=== PATIENT | male | born 1980 | race Caucasian/White ===

== ENCOUNTER 2023-05-29 02:46 | Inpatient (IN) | payer MEDICAID ==
[~2023-05-29] VITALS: Ht 190.5 cm; Wt 81.4 kg
[2023-05-29] MEDS ORDERED: HALOPERIDOL 5 MG TABLET PO PRN (04:15)
[2023-05-29] MEDS ORDERED: LORazepam 2 MG TABLET PO PRN (04:15)
[2023-05-29 04:39] VITALS: BP 116/76; PULSE 64; RESP 18; TEMP 98.9; O2SAT 97
[2023-05-29] MEDS ORDERED: INFLUENZA VIRUS VACCINE QVS 2023-24 (6MO+)/PF 60 MCG/0.5 ML SYRINGE IM. ONE (06:45)
[2023-05-29] MEDS ORDERED: ACETAMINOPHEN 325 MG TABLET PO PRN (07:00)
[2023-05-29] MEDS ORDERED: CloNIDine HCL 0.1 MG TABLET PO PRN (07:00)
[2023-05-29] MEDS ORDERED: MAG HYDROX/ALUMINUM HYD/SIMETH ES 30 ML SUSPENSION UDCUP PO PRN (07:00)
[2023-05-29] MEDS ORDERED: ONDANSETRON HCL 4 MG TABLET PO PRN (07:00)
[2023-05-29] MEDS ORDERED: MAGNESIUM HYDROXIDE SUSPENSION 30 ML UDCUP PO PRN (07:00)
[2023-05-29] MEDS ORDERED: ALBUTEROL SULFATE HFA 90 MCG/PUFF 8 GM INHALER IH PRN (07:00)
[2023-05-29] MEDS ORDERED: LOPERAMIDE HCL 2 MG CAPSULE PO PRN (07:00)
[2023-05-29] MEDS ORDERED: IBUPROFEN 400 MG TABLET PO PRN (07:00)
[2023-05-29] MEDS ORDERED: DOCUSATE SODIUM 100 MG CAPSULE PO PRN (07:00)
[2023-05-29] MEDS ORDERED: GuaiFENesin/D-METHORPHAN [SUGAR-FREE] 200-20MG/10 ML SYRUP UDCUP PO PRN (07:00)
[2023-05-29] MEDS ORDERED: NICOTINE 14 MG/24 HOUR PATCH TD PRN (07:00)
[2023-05-29] MEDS ORDERED: PETROLATUM,WHITE 28 GM JELLY TP PRN (07:00)
[2023-05-29 08:24] VITALS: BP 116/66; PULSE 60; RESP 18; TEMP 97.7; O2SAT 98
[2023-05-29] MEDS: SERTRALINE HCL 50 MG TABLET PO SCH (12:00)
[2023-05-29] MEDS: QUEtiapine FUMARATE 100 MG TABLET PO SCH ×2 (12:28→21:52)
[2023-05-29 23:26] VITALS: BP 126/74; PULSE 73; RESP 17; TEMP 97.8
[2023-05-30 08:15] VITALS: BP 104/59; PULSE 60; RESP 18; TEMP 98; O2SAT 97
[2023-05-30 08:23] LABS: BASOPHILS % (AUTO) 0.8 % (0.0-2.0); EOSINOPHILS % (AUTO) 5.1 % (1.0-6.0); HEMATOCRIT 43.8 % (41-53); HEMOGLOBIN 14.5 g/dL (13.5-17.5); LYMPHOCYTES # (AUTO) 2.3 K/uL (1.0-4.8); LYMPHOCYTES % (AUTO) 38.8 % (22.0-44.0); MEAN CORPUSCULAR HEMOGLOBIN 29.9 pg (26.0-34.0); MEAN CORPUSCULAR HGB CONC 33.2 G/dL (31.0-37.0); MEAN CORPUSCULAR VOLUME 90 fL (80-100); MONOCYTES # (AUTO) 0.6 K/uL (0.1-1.0); MONOCYTES % (AUTO) 10.1 % (2.0-9.0); NEUTROPHILS # (AUTO) 2.7 K/uL (1.8-7.7); NEUTROPHILS % (AUTO) 45.2 % (40.0-70.0); PLATELET COUNT (AUTO) 296 K/uL (150-450); RED BLOOD CELL COUNT(AUTO) 4.86 MIL/uL (4.50-5.90); RED CELL DISTRIBUTION WIDTH 13.8 % (11.5-14.5); WHITE BLOOD COUNT (AUTO) 5.9 K/uL (4.5-11.0)
[2023-05-30] MEDS: QUEtiapine FUMARATE 100 MG TABLET PO SCH ×2 (08:28→20:27)
[2023-05-30] MEDS: SERTRALINE HCL 50 MG TABLET PO SCH (08:28)
[2023-05-30 08:56] LABS: ALANINE AMINOTRANSFERASE 38 U/L (12-78); ALBUMIN 3.5 g/dL (3.4-5.0); ALKALINE PHOSPHATASE 95 U/L (46-116); ANION GAP 4 mmol/L (8-16); ASPARTATE AMINOTRANSFERASE 27 U/L (15-37); BILIRUBIN,TOTAL 0.2 mg/dL (0.1-1.0); CALCIUM, TOTAL 10.1 mg/dL (8.8-10.5); CARBON DIOXIDE 31 mmol/L (22-29); CHLORIDE 103 mmol/L (98-107); CHOL/HDL RATIO 5.3 (4.2-7.3); CHOLESTEROL 208 mg/dL (131-200); CREATININE 0.97 mg/dL (0.60-1.30); FREE T4 (FREE THYROXINE) 0.93 ng/dL (0.76-1.46); GLOMERULAR FILTR. RATE CALC > 60 mL/min (>60); GLUCOSE,RANDOM 90 mg/dL (70-110); HDL CHOLESTEROL 39 mg/dL (40-60); LDL CHOL (CALC.) 110 mg/dL (0-130); POTASSIUM 4.4 mmol/L (3.5-5.1); SODIUM SERUM 138 mmol/L (136-145); THYROID STIMULATING HORMONE 0.68 uIU/mL (0.36-3.74); TOTAL PROTEIN, SERUM 7.2 g/dL (6.4-8.2); TRIGLYCERIDES 297 mg/dL (15-150); UREA NITROGEN, BLOOD 23 mg/dL (7-18)
[2023-05-30 20:25] VITALS: BP 107/69; PULSE 61; RESP 16; TEMP 98.7; O2SAT 96
[2023-05-31 08:22] VITALS: BP 101/62; PULSE 76; RESP 19; TEMP 97.5; O2SAT 96
[2023-05-31] MEDS: OMEGA-3/DHA/EPA/FISH OIL 1,000 MG CAPSULE PO SCH (08:34)
[2023-05-31] MEDS: QUEtiapine FUMARATE 100 MG TABLET PO SCH ×2 (08:34→21:25)
[2023-05-31] MEDS: SERTRALINE HCL 50 MG TABLET PO SCH (08:51)
[2023-05-31 20:09] VITALS: BP 105/79; PULSE 65; RESP 18; TEMP 97.8; O2SAT 98
[2023-05-31] MEDS: ZOLPIDEM TARTRATE 10 MG TABLET PO PRN (21:49)
[2023-06-01] MEDS: OMEGA-3/DHA/EPA/FISH OIL 1,000 MG CAPSULE PO SCH (08:18)
[2023-06-01] MEDS: QUEtiapine FUMARATE 100 MG TABLET PO SCH ×2 (08:18→20:28)
[2023-06-01] MEDS: SERTRALINE HCL 50 MG TABLET PO SCH (08:18)
[2023-06-01 08:27] VITALS: BP 106/69; PULSE 79; RESP 17; TEMP 97.8; O2SAT 99
[2023-06-01 20:06] VITALS: BP 103/69; PULSE 61; RESP 18; TEMP 98.4; O2SAT 97
[2023-06-01] MEDS: ZOLPIDEM TARTRATE 10 MG TABLET PO PRN (20:28)
[2023-06-02 09:08] VITALS: BP 107/66; PULSE 62; RESP 16; TEMP 97.4; O2SAT 96
[2023-06-02] MEDS: SERTRALINE HCL 50 MG TABLET PO SCH (09:52)
[2023-06-02] MEDS: OMEGA-3/DHA/EPA/FISH OIL 1,000 MG CAPSULE PO SCH (09:52)
[2023-06-02] MEDS: QUEtiapine FUMARATE 100 MG TABLET PO SCH ×2 (09:52→20:24)
[2023-06-02 21:00] VITALS: BP 110/60; PULSE 68; RESP 18; TEMP 98.2; O2SAT 96
[2023-06-02 22:51] LABS: GLUCOMETER DEV NAME(LOC) POC.BV; POC SARS-COV2 AG, FIA NEGATIVE (NEGATIVE)
[2023-06-03 08:08] VITALS: BP 103/67; PULSE 63; RESP 18; TEMP 98.4; O2SAT 97
[2023-06-03] MEDS: QUEtiapine FUMARATE 100 MG TABLET PO SCH (08:58)
[2023-06-03] MEDS: OMEGA-3/DHA/EPA/FISH OIL 1,000 MG CAPSULE PO SCH (08:58)
[2023-06-03] MEDS: SERTRALINE HCL 50 MG TABLET PO SCH (08:58)
[2023-06-03] MEDS ORDERED: QUET100T34 PO (11:32)
[2023-06-03] MEDS ORDERED: SERT-439 PO (11:32)
== END 2023-06-03 13:00 | disposition home or self-care (01) | DRG 750 ==
LOC: B2S 04:06
PROVIDERS: ADMIT Psychiatry & Neurology Psychiatry; ATTEND Psychiatry & Neurology Psychiatry
PROC: GZHZZZZ Group Psychotherapy (ICD-10-PCS; principal; 2023-05-29)
DX: F25.1 Schizoaffective disorder, depressive type (principal); I95.9 Hypotension, unspecified; R45.851 Suicidal ideations; E78.5 Hyperlipidemia, unspecified; R00.1 Bradycardia, unspecified; Z79.899 Other long term (current) drug therapy; Z59.00 Homelessness unspecified; Z88.5 Allergy status to narcotic agent; Z20.822 Contact with and (suspected) exposure to COVID-19
CPT/HCPCS: 80053; 80061; 83036; 84436; 84439; 84443; 85025; 86592; 87081